=== PATIENT | male | born 1955 | race Caucasian/White ===

== ENCOUNTER 2019-11-10 21:47 | Inpatient (IN) ==
[2019-11-10] MEDS ORDERED: Ondansetron 4 MG/2 ML VIAL IVP PRN (23:54)
[2019-11-10] MEDS ORDERED: Naloxone 0.4 MG/ML INJ IVP PRN (23:54)
[2019-11-11 00:36] LABS: Basophils % 0.5 %; Eosinophils % 0.7 %; Hematocrit 36.2 % (37.5-50.1); Immature Granulocytes % 0.3 % (0-4); Lymphocytes # 1.2 K/mcL (0.6-4.6); Lymphocytes % 21.3 %; Mean Corpuscular HGB Conc 35.9 g/dL (31.6-35.5); Mean Corpuscular Hemoglobin 30.8 pg (28.0-33.3); Mean Corpuscular Volume 85.8 fL (83.0-100.0); Mean Platelet Volume 8.4 fL (9.4-12.4); Monocytes # 0.4 K/mcL (0.0-1.3); Monocytes % 6.5 %; Platelet Count 183 K/mcL (140-400); Red Blood Count 4.22 M/mcL (4.19-5.50); Red Cell Distribution Width 12.9 % (11.5-14.5); Segmented Neutrophils % 70.7 %; White Blood Count 5.7 K/mcL (4.3-11.1)
[2019-11-11 01:02] LABS: BUN/Creatinine Ratio 11 (6-26); Blood Urea Nitrogen 6 mg/dL (8-23); Calcium 9.1 mg/dL (8.6-10.3); Carbon Dioxide 22 mEq/L (23-29); Chloride 86 mEq/L (98-107); Glucose 102 mg/dL (70-105); Magnesium 1.7 mg/dL (1.6-2.6); Osmolality,Calculated 240 (280-300); Sodium 116 mEq/L (136-145); eGFR For African Americans > 60 (> 60); eGFR For Non-African Americans > 60 (> 60)
[2019-11-11 01:55] LABS: Thyroid Stimulating Hormone 1.253 mcIU/mL (0.340-5.600)
[2019-11-11] MEDS: *HR* Heparin 5,000 UNIT/ML VIAL SQ SCH ×2 (06:00→16:28)
[2019-11-11 06:30] LABS: BUN/Creatinine Ratio 12 (6-26); Blood Urea Nitrogen 6 mg/dL (8-23); Chloride 88 mEq/L (98-107); Glucose 81 mg/dL (70-105); Osmolality,Calculated 243 (280-300); Potassium 3.7 mEq/L (3.5-5.1); Sodium 118 mEq/L (136-145); eGFR For African Americans > 60 (> 60); eGFR For Non-African Americans > 60 (> 60)
[2019-11-11 06:45] LABS: Carbon Dioxide 20 mEq/L (23-29)
[2019-11-11] MEDS: Nicotine 21 MG PATCH.TD24 TD SCH (07:42)
[2019-11-11] MEDS: Acetaminophen 325 MG TABLET PO PRN ×2 (09:20→16:11)
[2019-11-11 10:37] LABS: BUN/Creatinine Ratio 11 (6-26); Blood Urea Nitrogen 7 mg/dL (8-23); Calcium 9.3 mg/dL (8.6-10.3); Carbon Dioxide 26 mEq/L (23-29); Chloride 86 mEq/L (98-107); Glucose 110 mg/dL (70-105); Osmolality,Calculated 245 (280-300); Potassium 3.9 mEq/L (3.5-5.1); Sodium 118 mEq/L (136-145); eGFR For African Americans > 60 (> 60); eGFR For Non-African Americans > 60 (> 60)
[2019-11-11 14:39] LABS: BUN/Creatinine Ratio 14 (6-26); Blood Urea Nitrogen 9 mg/dL (8-23); Calcium 8.8 mg/dL (8.6-10.3); Carbon Dioxide 26 mEq/L (23-29); Chloride 87 mEq/L (98-107); Glucose 119 mg/dL (70-105); Osmolality,Calculated 246 (280-300); Potassium 3.4 mEq/L (3.5-5.1); Sodium 118 mEq/L (136-145); eGFR For African Americans > 60 (> 60); eGFR For Non-African Americans > 60 (> 60)
[2019-11-11] MEDS: Doxycycline 100 MG in 0.9 % Sodium Chloride Mini Bag 100 ML IVPB SCH (16:12)
[2019-11-11] MEDS ORDERED: polyethylene glycoL 3350 17 GM POWD.PACK PO PRN (17:02)
[2019-11-11 17:42] LABS: BUN/Creatinine Ratio 17 (6-26); Blood Urea Nitrogen 10 mg/dL (8-23); Calcium 8.8 mg/dL (8.6-10.3); Carbon Dioxide 22 mEq/L (23-29); Chloride 87 mEq/L (98-107); Glucose 85 mg/dL (70-105); Osmolality,Calculated 242 (280-300); Potassium 3.6 mEq/L (3.5-5.1); Sodium 117 mEq/L (136-145); eGFR For African Americans > 60 (> 60); eGFR For Non-African Americans > 60 (> 60)
[2019-11-11] MEDS ORDERED: 0.9 % Sodium Chloride 1,000 ML ONE (18:10)
[2019-11-11] MEDS: 0.9 % Sodium Chloride 1,000 ML IVC SCH (18:22)
[2019-11-11 19:48] LABS: BUN/Creatinine Ratio 16 (6-26); Blood Urea Nitrogen 10 mg/dL (8-23); Calcium 8.6 mg/dL (8.6-10.3); Carbon Dioxide 24 mEq/L (23-29); Chloride 88 mEq/L (98-107); Glucose 126 mg/dL (70-105); Osmolality,Calculated 247 (280-300); Potassium 3.5 mEq/L (3.5-5.1); Sodium 118 mEq/L (136-145); eGFR For African Americans > 60 (> 60); eGFR For Non-African Americans > 60 (> 60)
[2019-11-11] MEDS: Budesonide/Formoterol 80/4.5 1 PUFF INH IH SCH (20:44)
[2019-11-11 23:27] LABS: BUN/Creatinine Ratio 15 (6-26); Blood Urea Nitrogen 9 mg/dL (8-23); Calcium 8.7 mg/dL (8.6-10.3); Carbon Dioxide 25 mEq/L (23-29); Chloride 89 mEq/L (98-107); Glucose 114 mg/dL (70-105); Osmolality,Calculated 250 (280-300); Potassium 3.4 mEq/L (3.5-5.1); Sodium 120 mEq/L (136-145); eGFR For African Americans > 60 (> 60); eGFR For Non-African Americans > 60 (> 60)
[2019-11-12 02:15] LABS: Prothrombin Time 11.1 Seconds (9.4-12.1)
[2019-11-12 02:37] LABS: BUN/Creatinine Ratio 14 (6-26); Blood Urea Nitrogen 8 mg/dL (8-23); Calcium 8.6 mg/dL (8.6-10.3); Carbon Dioxide 24 mEq/L (23-29); Chloride 90 mEq/L (98-107); Glucose 94 mg/dL (70-105); Osmolality,Calculated 248 (280-300); Potassium 3.4 mEq/L (3.5-5.1); Sodium 120 mEq/L (136-145); eGFR For African Americans > 60 (> 60); eGFR For Non-African Americans > 60 (> 60)
[2019-11-12] MEDS: Doxycycline 100 MG in 0.9 % Sodium Chloride Mini Bag 100 ML IVPB SCH (02:48)
[2019-11-12] MEDS: *HR* Heparin 5,000 UNIT/ML VIAL SQ SCH ×2 (04:39→17:16)
[2019-11-12 05:18] LABS: BUN/Creatinine Ratio 11 (6-26); Blood Urea Nitrogen 6 mg/dL (8-23); Calcium 8.6 mg/dL (8.6-10.3); Carbon Dioxide 25 mEq/L (23-29); Chloride 90 mEq/L (98-107); Glucose 93 mg/dL (70-105); Osmolality,Calculated 249 (280-300); Potassium 3.5 mEq/L (3.5-5.1); Sodium 121 mEq/L (136-145); eGFR For African Americans > 60 (> 60); eGFR For Non-African Americans > 60 (> 60)
[2019-11-12 09:28] LABS: BUN/Creatinine Ratio 11 (6-26); Blood Urea Nitrogen 6 mg/dL (8-23); Calcium 8.9 mg/dL (8.6-10.3); Carbon Dioxide 26 mEq/L (23-29); Chloride 90 mEq/L (98-107); Glucose 93 mg/dL (70-105); Osmolality,Calculated 249 (280-300); Potassium 3.4 mEq/L (3.5-5.1); Sodium 121 mEq/L (136-145); eGFR For African Americans > 60 (> 60); eGFR For Non-African Americans > 60 (> 60)
[2019-11-12] MEDS ORDERED: *HR* FentaNYL (PF) 100 MCG/2 ML VIAL ONE (10:18)
[2019-11-12] MEDS: Budesonide/Formoterol 80/4.5 1 PUFF INH IH SCH ×2 (10:45→20:22)
[2019-11-12] MEDS ORDERED: *HR* EPINEPHrine 1 MG/10 ML SYRINGE INTRATRACH PRN (11:20)
[2019-11-12] MEDS: Nicotine 21 MG PATCH.TD24 TD SCH (12:38)
[2019-11-12] MEDS: Metoprolol XL (24 HR) Succ 50 MG TAB.ER.24H PO SCH (12:39)
[2019-11-12] MEDS: Valsartan 160 MG TABLET PO SCH (12:39)
[2019-11-12] MEDS: amLODIPine 5 MG TABLET PO SCH (12:39)
[2019-11-12] MEDS: Aspirin 81 MG TAB.CHEW PO SCH (12:39)
[2019-11-12 13:40] LABS: BUN/Creatinine Ratio 11 (6-26); Blood Urea Nitrogen 6 mg/dL (8-23); Calcium 9.1 mg/dL (8.6-10.3); Carbon Dioxide 21 mEq/L (23-29); Chloride 88 mEq/L (98-107); Glucose 116 mg/dL (70-105); Osmolality,Calculated 257 (280-300); Potassium 3.7 mEq/L (3.5-5.1); Sodium 124 mEq/L (136-145); eGFR For African Americans > 60 (> 60); eGFR For Non-African Americans > 60 (> 60)
[2019-11-12] MEDS ORDERED: *HR* Propofol 200 MG/20 ML VIAL IVP ONE (15:26)
[2019-11-12] MEDS ORDERED: EPHEDrine 50 MG/ML VIAL IVP ONE (15:26)
[2019-11-12] MEDS ORDERED: Ondansetron 4 MG/2 ML VIAL IVP ONE (15:26)
[2019-11-12] MEDS ORDERED: *HR* Succinylcholine 200 MG/10 ML VIAL IVP ONE (15:26)
[2019-11-12] MEDS ORDERED: Lidocaine 2% Syringe 100 MG/5 ML IV ONE ×2 (15:26)
[2019-11-12] MEDS: 0.9 % Sodium Chloride 1,000 ML IVC SCH (17:15)
[2019-11-12 17:52] LABS: Appearance of Body Fluid Cloudy (Clear); Volume of Body Fluid 20 mL
[2019-11-12 18:28] LABS: BUN/Creatinine Ratio 11 (6-26); Blood Urea Nitrogen 6 mg/dL (8-23); Calcium 9.2 mg/dL (8.6-10.3); Carbon Dioxide 21 mEq/L (23-29); Chloride 89 mEq/L (98-107); Glucose 200 mg/dL (70-105); Osmolality,Calculated 253 (280-300); Sodium 120 mEq/L (136-145); eGFR For African Americans > 60 (> 60); eGFR For Non-African Americans > 60 (> 60)
[2019-11-12 20:45] LABS: BUN/Creatinine Ratio 12 (6-26); Blood Urea Nitrogen 6 mg/dL (8-23); Calcium 9.3 mg/dL (8.6-10.3); Carbon Dioxide 22 mEq/L (23-29); Chloride 90 mEq/L (98-107); Glucose 160 mg/dL (70-105); Osmolality,Calculated 251 (280-300); Sodium 120 mEq/L (136-145); eGFR For African Americans > 60 (> 60); eGFR For Non-African Americans > 60 (> 60)
[2019-11-12] MEDS: Doxycycline 100 MG CAPSULE PO SCH (21:28)
[2019-11-12 23:44] LABS: BUN/Creatinine Ratio 13 (6-26); Blood Urea Nitrogen 7 mg/dL (8-23); Calcium 9.3 mg/dL (8.6-10.3); Carbon Dioxide 21 mEq/L (23-29); Chloride 90 mEq/L (98-107); Glucose 177 mg/dL (70-105); Osmolality,Calculated 252 (280-300); Potassium 4.1 mEq/L (3.5-5.1); Sodium 120 mEq/L (136-145); eGFR For African Americans > 60 (> 60); eGFR For Non-African Americans > 60 (> 60)
[2019-11-13 02:28] LABS: BUN/Creatinine Ratio 11 (6-26); Blood Urea Nitrogen 6 mg/dL (8-23); Calcium 9.1 mg/dL (8.6-10.3); Carbon Dioxide 22 mEq/L (23-29); Chloride 90 mEq/L (98-107); Glucose 146 mg/dL (70-105); Osmolality,Calculated 250 (280-300); Sodium 120 mEq/L (136-145); eGFR For African Americans > 60 (> 60); eGFR For Non-African Americans > 60 (> 60)
[2019-11-13 05:14] LABS: Hematocrit 33.2 % (37.5-50.1); Hemoglobin 11.9 g/dL (12.9-16.9); Mean Corpuscular HGB Conc 35.8 g/dL (31.6-35.5); Mean Corpuscular Hemoglobin 30.4 pg (28.0-33.3); Mean Corpuscular Volume 84.7 fL (83.0-100.0); Mean Platelet Volume 8.4 fL (9.4-12.4); Platelet Count 187 K/mcL (140-400); Red Blood Count 3.92 M/mcL (4.19-5.50); Red Cell Distribution Width 13.3 % (11.5-14.5); White Blood Count 8.3 K/mcL (4.3-11.1)
[2019-11-13 05:37] LABS: BUN/Creatinine Ratio 11 (6-26); Blood Urea Nitrogen 6 mg/dL (8-23); Calcium 8.9 mg/dL (8.6-10.3); Carbon Dioxide 22 mEq/L (23-29); Chloride 91 mEq/L (98-107); Glucose 126 mg/dL (70-105); Osmolality,Calculated 247 (280-300); Potassium 4.1 mEq/L (3.5-5.1); Sodium 119 mEq/L (136-145); eGFR For African Americans > 60 (> 60); eGFR For Non-African Americans > 60 (> 60)
[2019-11-13] MEDS: *HR* Heparin 5,000 UNIT/ML VIAL SQ SCH ×2 (05:46→17:02)
[2019-11-13] MEDS: Budesonide/Formoterol 80/4.5 1 PUFF INH IH SCH ×2 (07:44→19:52)
[2019-11-13] MEDS: amLODIPine 5 MG TABLET PO SCH (08:33)
[2019-11-13] MEDS: Valsartan 160 MG TABLET PO SCH (08:33)
[2019-11-13] MEDS: Metoprolol XL (24 HR) Succ 50 MG TAB.ER.24H PO SCH (08:33)
[2019-11-13] MEDS: Aspirin 81 MG TAB.CHEW PO SCH (08:33)
[2019-11-13] MEDS: Nicotine 21 MG PATCH.TD24 TD SCH (08:33)
[2019-11-13] MEDS: Doxycycline 100 MG CAPSULE PO SCH ×2 (08:33→20:11)
[2019-11-13] MEDS ORDERED: 0.9 % Sodium Chloride 1,000 ML IVC SCH (09:00)
[2019-11-13] MEDS ORDERED: GI Cocktail 40 ML EACH PO ONE (17:41)
[2019-11-14 01:07] LABS: Basophils # 0.1 K/mcL (0.0-0.2); Basophils % 0.8 %; Eosinophils # 0.1 K/mcL (0.0-0.6); Eosinophils % 0.8 %; Hematocrit 32.1 % (37.5-50.1); Hemoglobin 11.3 g/dL (12.9-16.9); Immature Granulocytes % 0.4 % (0-4); Lymphocytes % 25.9 %; Mean Corpuscular HGB Conc 35.2 g/dL (31.6-35.5); Mean Corpuscular Hemoglobin 30.4 pg (28.0-33.3); Mean Corpuscular Volume 86.3 fL (83.0-100.0); Mean Platelet Volume 8.4 fL (9.4-12.4); Monocytes # 0.6 K/mcL (0.0-1.3); Monocytes % 7.7 %; Neutrophils # 4.9 K/mcL (1.6-8.9); Platelet Count 191 K/mcL (140-400); Red Blood Count 3.72 M/mcL (4.19-5.50); Red Cell Distribution Width 13.3 % (11.5-14.5); Segmented Neutrophils % 64.4 %; White Blood Count 7.6 K/mcL (4.3-11.1)
[2019-11-14 01:28] LABS: BUN/Creatinine Ratio 15 (6-26); Blood Urea Nitrogen 8 mg/dL (8-23); Calcium 8.8 mg/dL (8.6-10.3); Carbon Dioxide 24 mEq/L (23-29); Chloride 93 mEq/L (98-107); Glucose 88 mg/dL (70-105); Osmolality,Calculated 254 (280-300); Potassium 3.6 mEq/L (3.5-5.1); Sodium 123 mEq/L (136-145); eGFR For African Americans > 60 (> 60); eGFR For Non-African Americans > 60 (> 60)
[2019-11-14] MEDS: *HR* Heparin 5,000 UNIT/ML VIAL SQ SCH ×2 (05:02→17:41)
[2019-11-14] MEDS: Valsartan 160 MG TABLET PO SCH (07:45)
[2019-11-14] MEDS: Aspirin 81 MG TAB.CHEW PO SCH (07:45)
[2019-11-14] MEDS: Metoprolol XL (24 HR) Succ 50 MG TAB.ER.24H PO SCH (07:45)
[2019-11-14] MEDS: amLODIPine 5 MG TABLET PO SCH (07:45)
[2019-11-14] MEDS: Doxycycline 100 MG CAPSULE PO SCH ×2 (07:45→20:05)
[2019-11-14] MEDS: Nicotine 21 MG PATCH.TD24 TD SCH (07:45)
[2019-11-14] MEDS: Budesonide/Formoterol 80/4.5 1 PUFF INH IH SCH ×2 (07:47→22:50)
[2019-11-15 01:52] LABS: Basophils # 0.1 K/mcL (0.0-0.2); Basophils % 1.4 %; Eosinophils # 0.1 K/mcL (0.0-0.6); Eosinophils % 1.6 %; Hematocrit 33.5 % (37.5-50.1); Hemoglobin 11.7 g/dL (12.9-16.9); Immature Granulocytes % 0.5 % (0-4); Lymphocytes # 1.7 K/mcL (0.6-4.6); Lymphocytes % 31.1 %; Mean Corpuscular HGB Conc 34.9 g/dL (31.6-35.5); Mean Corpuscular Hemoglobin 30.6 pg (28.0-33.3); Mean Corpuscular Volume 87.7 fL (83.0-100.0); Mean Platelet Volume 8.4 fL (9.4-12.4); Monocytes # 0.6 K/mcL (0.0-1.3); Monocytes % 10.5 %; Neutrophils # 3.1 K/mcL (1.6-8.9); Platelet Count 199 K/mcL (140-400); Red Blood Count 3.82 M/mcL (4.19-5.50); Red Cell Distribution Width 13.5 % (11.5-14.5); Segmented Neutrophils % 54.9 %; White Blood Count 5.6 K/mcL (4.3-11.1)
[2019-11-15 02:07] LABS: BUN/Creatinine Ratio 14 (6-26); Blood Urea Nitrogen 8 mg/dL (8-23); Calcium 8.9 mg/dL (8.6-10.3); Carbon Dioxide 24 mEq/L (23-29); Chloride 94 mEq/L (98-107); Glucose 96 mg/dL (70-105); Osmolality,Calculated 258 (280-300); Potassium 3.7 mEq/L (3.5-5.1); Sodium 125 mEq/L (136-145); eGFR For African Americans > 60 (> 60); eGFR For Non-African Americans > 60 (> 60)
[2019-11-15] MEDS: *HR* Heparin 5,000 UNIT/ML VIAL SQ SCH (05:46)
[2019-11-15] MEDS: Metoprolol XL (24 HR) Succ 50 MG TAB.ER.24H PO SCH (09:06)
[2019-11-15] MEDS: Doxycycline 100 MG CAPSULE PO SCH (09:06)
[2019-11-15] MEDS: Aspirin 81 MG TAB.CHEW PO SCH (09:06)
[2019-11-15] MEDS: amLODIPine 5 MG TABLET PO SCH (09:06)
[2019-11-15] MEDS: Valsartan 160 MG TABLET PO SCH (09:06)
[2019-11-15] MEDS: Nicotine 21 MG PATCH.TD24 TD SCH (09:07)
[2019-11-15] MEDS ORDERED: Isovue-370 500 ML BOTTLE IVP ONE (09:40)
[2019-11-15] MEDS: Budesonide/Formoterol 80/4.5 1 PUFF INH IH SCH (10:06)
[2019-11-15 10:26] VITALS: BP 139/87
[2019-11-15] MEDS ORDERED: Isovue-370 500 ML BOTTLE PO ONE (12:39)
== END 2019-11-15 15:27 | disposition home or self-care (01) ==
LOC: 3NENU → SUATTDRO 22:57 → 3ANU 11-14 18:00
PROVIDERS: ADMIT Internal Medicine; ATTEND Family Medicine

== ENCOUNTER 2019-12-04 02:44 | Inpatient (IN) ==
[2019-12-04] MEDS ORDERED: Acetaminophen 325 MG TABLET PO PRN (04:55)
[2019-12-04] MEDS ORDERED: *HR* HYDROcodone/Acet 5/325 mg TABLET PO PRN (04:55)
[2019-12-04] MEDS ORDERED: *HR* Promethazine 25 MG/ML VIAL IVP PRN (04:55)
[2019-12-04] MEDS ORDERED: Naloxone 0.4 MG/ML INJ IVP PRN (04:55)
[2019-12-04 06:09] LABS: Basophils % 0.5 %; Eosinophils % 0.2 %; Hematocrit 36.4 % (37.5-50.1); Hemoglobin 12.8 g/dL (12.9-16.9); Lymphocytes # 0.5 K/mcL (0.6-4.6); Lymphocytes % 7.7 %; Mean Corpuscular HGB Conc 35.2 g/dL (31.6-35.5); Mean Corpuscular Hemoglobin 30.4 pg (28.0-33.3); Mean Corpuscular Volume 86.5 fL (83.0-100.0); Mean Platelet Volume 8.2 fL (9.4-12.4); Monocytes # 0.1 K/mcL (0.0-1.3); Monocytes % 1.6 %; Neutrophils # 5.6 K/mcL (1.6-8.9); Platelet Count 208 K/mcL (140-400); Red Blood Count 4.21 M/mcL (4.19-5.50); Red Cell Distribution Width 13.8 % (11.5-14.5); White Blood Count 6.2 K/mcL (4.3-11.1)
[2019-12-04 06:34] LABS: Alanine Aminotransferase 17 Units/L (7-52); Albumin 4.1 g/dL (3.5-5.7); Alkaline Phosphatase 64 Units/L (34-104); Aspartate Amino Transferase 20 Units/L (13-39); BUN/Creatinine Ratio 12 (6-26); Bilirubin,Total 0.6 mg/dL (0.3-1.0); Blood Urea Nitrogen 7 mg/dL (8-23); Calcium 8.9 mg/dL (8.6-10.3); Carbon Dioxide 21 mEq/L (23-29); Chloride 90 mEq/L (98-107); Glucose 147 mg/dL (70-105); Osmolality,Calculated 245 (280-300); Potassium 4.4 mEq/L (3.5-5.1); Sodium 117 mEq/L (136-145); eGFR For African Americans > 60 (> 60); eGFR For Non-African Americans > 60 (> 60)
[2019-12-04 06:42] LABS: Albumin/Globulin Ratio 1.9 (1.1-2.2); Globulin 2.2 g/dL (2.4-3.5); Total Protein 6.3 g/dL (6.4-8.9)
[2019-12-04] MEDS ORDERED: *HR* Heparin 5,000 UNIT/ML VIAL IVP PRN ×2 (07:32)
[2019-12-04] MEDS ORDERED: *HR* Heparin 5,000 UNIT/ML VIAL IVP ONE (07:32)
[2019-12-04] MEDS: Mag Hydrox/Al Hydrox/Simeth 30 ML UDC PO PRN ×3 (08:31→22:48)
[2019-12-04] MEDS: Metoprolol XL (24 HR) Succ 50 MG TAB.ER.24H PO SCH (08:32)
[2019-12-04] MEDS: Aspirin 81 MG TAB.CHEW PO SCH (08:33)
[2019-12-04] MEDS: amLODIPine 5 MG TABLET PO SCH (08:33)
[2019-12-04] MEDS: Heparin 25,000 UNIT/250 ML D5W 25,000 UNIT/250 ML IV.SOLN IVC SCH (08:34)
[2019-12-04 08:36] LABS: Estimated Average Glucose 111 mg/dl
[2019-12-04 09:15] LABS: Hematocrit 37.8 % (37.5-50.1); Hemoglobin 13.1 g/dL (12.9-16.9); Mean Corpuscular HGB Conc 34.7 g/dL (31.6-35.5); Mean Corpuscular Hemoglobin 30.2 pg (28.0-33.3); Mean Corpuscular Volume 87.1 fL (83.0-100.0); Mean Platelet Volume 8.3 fL (9.4-12.4); Platelet Count 228 K/mcL (140-400); Red Blood Count 4.34 M/mcL (4.19-5.50); Red Cell Distribution Width 13.7 % (11.5-14.5)
[2019-12-04] MEDS: Budesonide/Formoterol 80/4.5 1 PUFF INH IH SCH ×2 (09:20→20:19)
[2019-12-04 09:29] LABS: Heparin anti-factor XA UFH < 0.04 IU/mL (0.30-0.70); Prothrombin Time 11.2 Seconds (9.4-12.1)
[2019-12-04] MEDS ORDERED: *HR* Heparin 5,000 UNIT/ML VIAL SQ SCH (18:00)
[2019-12-04 22:16] LABS: Bilirubin,Urine Negative (Negative); Blood,Urine Negative (Negative); Clarity,Urine Clear (Clear); Color,Urine Yellow (Yellow); Glucose,Urine (UA) Normal (Normal); Ketones,Urine Negative (Negative); Leukocyte Esterase,Urine Negative (Negative); Nitrite,Urine Negative (Negative); Protein,Urine Trace mg/dL (Neg-Trace); Urobilinogen,Urine Normal (Normal)
[2019-12-05 05:07] LABS: Hematocrit 36.9 % (37.5-50.1); Hemoglobin 13.1 g/dL (12.9-16.9); Mean Corpuscular HGB Conc 35.5 g/dL (31.6-35.5); Mean Corpuscular Hemoglobin 30.9 pg (28.0-33.3); Mean Platelet Volume 8.1 fL (9.4-12.4); Platelet Count 203 K/mcL (140-400); Red Blood Count 4.24 M/mcL (4.19-5.50); Red Cell Distribution Width 13.4 % (11.5-14.5); White Blood Count 8.5 K/mcL (4.3-11.1)
[2019-12-05 05:52] LABS: % Iron Saturation 26 % (20-55); BUN/Creatinine Ratio 13 (6-26); Blood Urea Nitrogen 8 mg/dL (8-23); Calcium 8.9 mg/dL (8.6-10.3); Carbon Dioxide 23 mEq/L (23-29); Chloride 86 mEq/L (98-107); Glucose 96 mg/dL (70-105); Iron 98 mcg/dL (65-175); Osmolality,Calculated 246 (280-300); Potassium 4.1 mEq/L (3.5-5.1); Sodium 119 mEq/L (136-145); Transferrin 271 mg/dL (203-362); eGFR For African Americans > 60 (> 60); eGFR For Non-African Americans > 60 (> 60)
[2019-12-05 05:53] LABS: Folate 11.7 ng/mL (3.0-16.0)
[2019-12-05] MEDS: Heparin 25,000 UNIT/250 ML D5W 25,000 UNIT/250 ML IV.SOLN IVC SCH (07:43)
[2019-12-05] MEDS: Aspirin 81 MG TAB.CHEW PO SCH (07:43)
[2019-12-05] MEDS: Metoprolol XL (24 HR) Succ 50 MG TAB.ER.24H PO SCH (07:43)
[2019-12-05] MEDS: amLODIPine 5 MG TABLET PO SCH (07:43)
[2019-12-05] MEDS: Mag Hydrox/Al Hydrox/Simeth 30 ML UDC PO PRN ×2 (08:05→17:16)
[2019-12-05] MEDS: Budesonide/Formoterol 80/4.5 1 PUFF INH IH SCH ×2 (08:13→20:00)
[2019-12-05] MEDS: *HR* Heparin 5,000 UNIT/ML VIAL SQ SCH (17:11)
[2019-12-05] MEDS: predniSONE 20 MG TABLET PO SCH (17:50)
[2019-12-05] MEDS: Loratadine 10 MG TABLET PO SCH (19:49)
[2019-12-06 04:15] LABS: Hematocrit 36.9 % (37.5-50.1); Hemoglobin 12.8 g/dL (12.9-16.9); Mean Corpuscular HGB Conc 34.7 g/dL (31.6-35.5); Mean Corpuscular Hemoglobin 30.4 pg (28.0-33.3); Mean Corpuscular Volume 87.6 fL (83.0-100.0); Mean Platelet Volume 8.6 fL (9.4-12.4); Platelet Count 227 K/mcL (140-400); Red Blood Count 4.21 M/mcL (4.19-5.50); Red Cell Distribution Width 13.5 % (11.5-14.5); White Blood Count 7.3 K/mcL (4.3-11.1)
[2019-12-06 04:46] LABS: BUN/Creatinine Ratio 17 (6-26); Blood Urea Nitrogen 11 mg/dL (8-23); Calcium 9.4 mg/dL (8.6-10.3); Carbon Dioxide 22 mEq/L (23-29); Chloride 90 mEq/L (98-107); Glucose 113 mg/dL (70-105); Osmolality,Calculated 250 (280-300); Potassium 4.3 mEq/L (3.5-5.1); Sodium 120 mEq/L (136-145); eGFR For African Americans > 60 (> 60); eGFR For Non-African Americans > 60 (> 60)
[2019-12-06] MEDS: *HR* Heparin 5,000 UNIT/ML VIAL SQ SCH ×2 (05:51→17:25)
[2019-12-06] MEDS: Metoprolol XL (24 HR) Succ 50 MG TAB.ER.24H PO SCH (08:26)
[2019-12-06] MEDS: Aspirin 81 MG TAB.CHEW PO SCH (08:26)
[2019-12-06] MEDS: amLODIPine 5 MG TABLET PO SCH (08:26)
[2019-12-06] MEDS: Mag Hydrox/Al Hydrox/Simeth 30 ML UDC PO PRN (08:26)
[2019-12-06] MEDS: predniSONE 20 MG TABLET PO SCH (08:26)
[2019-12-06] MEDS: Loratadine 10 MG TABLET PO SCH ×2 (08:26→20:14)
[2019-12-06] MEDS: Budesonide/Formoterol 80/4.5 1 PUFF INH IH SCH ×2 (11:51→19:54)
[2019-12-07 01:36] LABS: BUN/Creatinine Ratio 20 (6-26); Blood Urea Nitrogen 14 mg/dL (8-23); Calcium 8.9 mg/dL (8.6-10.3); Carbon Dioxide 23 mEq/L (23-29); Chloride 93 mEq/L (98-107); Glucose 105 mg/dL (70-105); Osmolality,Calculated 259 (280-300); Potassium 4.1 mEq/L (3.5-5.1); Sodium 124 mEq/L (136-145); eGFR For African Americans > 60 (> 60); eGFR For Non-African Americans > 60 (> 60)
[2019-12-07] MEDS: *HR* Heparin 5,000 UNIT/ML VIAL SQ SCH (05:15)
[2019-12-07 06:57] VITALS: BP 152/96
[2019-12-07] MEDS: Loratadine 10 MG TABLET PO SCH (08:45)
[2019-12-07] MEDS: predniSONE 20 MG TABLET PO SCH (08:45)
[2019-12-07] MEDS: Metoprolol XL (24 HR) Succ 50 MG TAB.ER.24H PO SCH (08:45)
[2019-12-07] MEDS: Aspirin 81 MG TAB.CHEW PO SCH (08:45)
[2019-12-07] MEDS: amLODIPine 5 MG TABLET PO SCH (08:45)
== END 2019-12-07 10:14 | disposition home or self-care (01) | DRG 385 ==
LOC: 3BNU
PROVIDERS: ADMIT Family Medicine; ATTEND Family Medicine

== ENCOUNTER 2020-01-01 13:53 | Inpatient (IN) ==
[2020-01-01] MEDS ORDERED: Prochlorperazine 10 MG/2 ML VIAL IVP STA (15:31)
[2020-01-01] MEDS ORDERED: Ondansetron 4 MG/2 ML VIAL IVP PRN (15:54)
[2020-01-01] MEDS ORDERED: Naloxone 0.4 MG/ML INJ IVP PRN (15:54)
[2020-01-01] MEDS ORDERED: 0.9 % Sodium Chloride 1,000 ML IVC SCH ×2 (16:00→22:40)
[2020-01-01] MEDS: *HR* Heparin 5,000 UNIT/ML VIAL SQ SCH (19:01)
[2020-01-01 19:39] LABS: BUN/Creatinine Ratio 11 (6-26); Blood Urea Nitrogen 6 mg/dL (8-23); Calcium 8.5 mg/dL (8.6-10.3); Carbon Dioxide 26 mEq/L (23-29); Chloride 84 mEq/L (98-107); Glucose 102 mg/dL (70-105); Osmolality,Calculated 234 (280-300); Potassium 4.4 mEq/L (3.5-5.1); Sodium 113 mEq/L (136-145); eGFR For African Americans > 60 (> 60); eGFR For Non-African Americans > 60 (> 60)
[2020-01-01] MEDS: Budesonide/Formoterol 80/4.5 1 PUFF INH IH SCH (19:57)
[2020-01-01 22:35] LABS: BUN/Creatinine Ratio 10 (6-26); Blood Urea Nitrogen 5 mg/dL (8-23); Calcium 8.4 mg/dL (8.6-10.3); Carbon Dioxide 23 mEq/L (23-29); Chloride 84 mEq/L (98-107); Glucose 104 mg/dL (70-105); Osmolality,Calculated 234 (280-300); Potassium 3.8 mEq/L (3.5-5.1); Sodium 113 mEq/L (136-145); eGFR For African Americans > 60 (> 60); eGFR For Non-African Americans > 60 (> 60)
[2020-01-02 02:17] LABS: BUN/Creatinine Ratio 10 (6-26); Blood Urea Nitrogen 5 mg/dL (8-23); Calcium 8.4 mg/dL (8.6-10.3); Carbon Dioxide 24 mEq/L (23-29); Chloride 84 mEq/L (98-107); Glucose 79 mg/dL (70-105); Osmolality,Calculated 232 (280-300); Sodium 113 mEq/L (136-145); eGFR For African Americans > 60 (> 60); eGFR For Non-African Americans > 60 (> 60)
[2020-01-02] MEDS ORDERED: 0.9 % Sodium Chloride 1,000 ML IVC SCH (02:30)
[2020-01-02] MEDS: *HR* Heparin 5,000 UNIT/ML VIAL SQ SCH ×2 (05:25→17:14)
[2020-01-02 06:20] LABS: BUN/Creatinine Ratio 11 (6-26); Blood Urea Nitrogen 5 mg/dL (8-23); Calcium 8.4 mg/dL (8.6-10.3); Carbon Dioxide 23 mEq/L (23-29); Chloride 85 mEq/L (98-107); Glucose 79 mg/dL (70-105); Osmolality,Calculated 232 (280-300); Potassium 4.1 mEq/L (3.5-5.1); Sodium 113 mEq/L (136-145); Uric Acid 1.6 mg/dL (2.3-7.6); eGFR For African Americans > 60 (> 60); eGFR For Non-African Americans > 60 (> 60)
[2020-01-02] MEDS ORDERED: NON-FORMULARY MEDICATION 1 EACH EACH (Ondansetron Hcl [Ondansetron Hcl] 8 MG) PO PRN (06:58)
[2020-01-02] MEDS ORDERED: traZODone 50 MG TABLET PO PRN (06:58)
[2020-01-02] MEDS ORDERED: dexAMETHasone 4 MG TABLET PO PRN (07:00)
[2020-01-02] MEDS: Metoprolol XL (24 HR) Succ 50 MG TAB.ER.24H PO SCH (07:42)
[2020-01-02] MEDS: amLODIPine 5 MG TABLET PO SCH (07:42)
[2020-01-02] MEDS: Aspirin 81 MG TAB.CHEW PO SCH (07:42)
[2020-01-02] MEDS: Nicotine 14 MG PATCH.TD24 TD SCH (07:42)
[2020-01-02] MEDS: polyethylene glycoL 3350 17 GM POWD.PACK PO SCH (07:42)
[2020-01-02] MEDS: Loratadine 10 MG TABLET PO SCH (07:43)
[2020-01-02] MEDS: Budesonide/Formoterol 80/4.5 1 PUFF INH IH SCH ×2 (10:32→19:25)
[2020-01-02 11:14] LABS: BUN/Creatinine Ratio 11 (6-26); Blood Urea Nitrogen 6 mg/dL (8-23); Calcium 8.4 mg/dL (8.6-10.3); Carbon Dioxide 24 mEq/L (23-29); Chloride 85 mEq/L (98-107); Glucose 81 mg/dL (70-105); Osmolality,Calculated 233 (280-300); Potassium 4.3 mEq/L (3.5-5.1); Sodium 113 mEq/L (136-145); eGFR For African Americans > 60 (> 60); eGFR For Non-African Americans > 60 (> 60)
[2020-01-02 14:42] LABS: BUN/Creatinine Ratio 11 (6-26); Blood Urea Nitrogen 6 mg/dL (8-23); Calcium 8.5 mg/dL (8.6-10.3); Carbon Dioxide 23 mEq/L (23-29); Chloride 86 mEq/L (98-107); Glucose 96 mg/dL (70-105); Osmolality,Calculated 231 (280-300); Potassium 4.2 mEq/L (3.5-5.1); Sodium 112 mEq/L (136-145); eGFR For African Americans > 60 (> 60); eGFR For Non-African Americans > 60 (> 60)
[2020-01-02 18:11] LABS: BUN/Creatinine Ratio 11 (6-26); Blood Urea Nitrogen 6 mg/dL (8-23); Calcium 8.3 mg/dL (8.6-10.3); Carbon Dioxide 23 mEq/L (23-29); Chloride 85 mEq/L (98-107); Glucose 152 mg/dL (70-105); Osmolality,Calculated 239 (280-300); Potassium 3.9 mEq/L (3.5-5.1); Sodium 114 mEq/L (136-145); eGFR For African Americans > 60 (> 60); eGFR For Non-African Americans > 60 (> 60)
[2020-01-02] MEDS ORDERED: Melatonin 3 MG TABLET PO ONE (23:05)
[2020-01-02 23:57] LABS: BUN/Creatinine Ratio 13 (6-26); Blood Urea Nitrogen 7 mg/dL (8-23); Calcium 8.6 mg/dL (8.6-10.3); Carbon Dioxide 22 mEq/L (23-29); Chloride 87 mEq/L (98-107); Glucose 112 mg/dL (70-105); Osmolality,Calculated 239 (280-300); Sodium 115 mEq/L (136-145); eGFR For African Americans > 60 (> 60); eGFR For Non-African Americans > 60 (> 60)
[2020-01-03 02:39] LABS: BUN/Creatinine Ratio 13 (6-26); Blood Urea Nitrogen 7 mg/dL (8-23); Calcium 8.5 mg/dL (8.6-10.3); Carbon Dioxide 22 mEq/L (23-29); Chloride 87 mEq/L (98-107); Glucose 116 mg/dL (70-105); Osmolality,Calculated 239 (280-300); Sodium 115 mEq/L (136-145); eGFR For African Americans > 60 (> 60); eGFR For Non-African Americans > 60 (> 60)
[2020-01-03] MEDS: *HR* Heparin 5,000 UNIT/ML VIAL SQ SCH ×2 (05:47→16:53)
[2020-01-03 06:27] LABS: BUN/Creatinine Ratio 12 (6-26); Blood Urea Nitrogen 6 mg/dL (8-23); Calcium 8.6 mg/dL (8.6-10.3); Carbon Dioxide 25 mEq/L (23-29); Chloride 86 mEq/L (98-107); Glucose 86 mg/dL (70-105); Osmolality,Calculated 237 (280-300); Potassium 4.2 mEq/L (3.5-5.1); Sodium 115 mEq/L (136-145); eGFR For African Americans > 60 (> 60); eGFR For Non-African Americans > 60 (> 60)
[2020-01-03] MEDS: Budesonide/Formoterol 80/4.5 1 PUFF INH IH SCH ×2 (07:39→20:04)
[2020-01-03] MEDS: amLODIPine 5 MG TABLET PO SCH (08:02)
[2020-01-03] MEDS: Metoprolol XL (24 HR) Succ 50 MG TAB.ER.24H PO SCH (08:03)
[2020-01-03] MEDS: Aspirin 81 MG TAB.CHEW PO SCH (08:03)
[2020-01-03] MEDS: Loratadine 10 MG TABLET PO SCH (08:03)
[2020-01-03] MEDS: polyethylene glycoL 3350 17 GM POWD.PACK PO SCH (08:05)
[2020-01-03] MEDS: Nicotine 14 MG PATCH.TD24 TD SCH (08:05)
[2020-01-03] MEDS ORDERED: Melatonin 3 MG TABLET PO PRN (10:51)
[2020-01-03 12:20] LABS: BUN/Creatinine Ratio 12 (6-26); Blood Urea Nitrogen 8 mg/dL (8-23); Calcium 8.9 mg/dL (8.6-10.3); Carbon Dioxide 25 mEq/L (23-29); Chloride 87 mEq/L (98-107); Glucose 88 mg/dL (70-105); Osmolality,Calculated 240 (280-300); Potassium 4.3 mEq/L (3.5-5.1); Sodium 116 mEq/L (136-145); eGFR For African Americans > 60 (> 60); eGFR For Non-African Americans > 60 (> 60)
[2020-01-03 15:53] LABS: BUN/Creatinine Ratio 14 (6-26); Blood Urea Nitrogen 8 mg/dL (8-23); Calcium 8.6 mg/dL (8.6-10.3); Carbon Dioxide 25 mEq/L (23-29); Chloride 88 mEq/L (98-107); Glucose 104 mg/dL (70-105); Osmolality,Calculated 243 (280-300); Potassium 4.2 mEq/L (3.5-5.1); Sodium 117 mEq/L (136-145); eGFR For African Americans > 60 (> 60); eGFR For Non-African Americans > 60 (> 60)
[2020-01-03 20:33] LABS: BUN/Creatinine Ratio 17 (6-26); Blood Urea Nitrogen 9 mg/dL (8-23); Calcium 8.7 mg/dL (8.6-10.3); Carbon Dioxide 24 mEq/L (23-29); Chloride 88 mEq/L (98-107); Glucose 116 mg/dL (70-105); Osmolality,Calculated 246 (280-300); Sodium 118 mEq/L (136-145); eGFR For African Americans > 60 (> 60); eGFR For Non-African Americans > 60 (> 60)
[2020-01-04 00:20] LABS: BUN/Creatinine Ratio 15 (6-26); Blood Urea Nitrogen 9 mg/dL (8-23); Calcium 8.5 mg/dL (8.6-10.3); Carbon Dioxide 25 mEq/L (23-29); Chloride 90 mEq/L (98-107); Glucose 108 mg/dL (70-105); Osmolality,Calculated 247 (280-300); Sodium 119 mEq/L (136-145); eGFR For African Americans > 60 (> 60); eGFR For Non-African Americans > 60 (> 60)
[2020-01-04 04:25] LABS: Basophils # 0.1 K/mcL (0.0-0.2); Basophils % 1.6 %; Eosinophils % 0.2 %; Hematocrit 27.8 % (37.5-50.1); Hemoglobin 9.8 g/dL (12.9-16.9); Immature Granulocytes % 5.8 % (0-4); Lymphocytes # 1.5 K/mcL (0.6-4.6); Lymphocytes % 23.6 %; Mean Corpuscular HGB Conc 35.3 g/dL (31.6-35.5); Mean Corpuscular Hemoglobin 30.7 pg (28.0-33.3); Mean Corpuscular Volume 87.1 fL (83.0-100.0); Mean Platelet Volume 8.8 fL (9.4-12.4); Monocytes % 15.4 %; Neutrophils # 3.4 K/mcL (1.6-8.9); Platelet Count 238 K/mcL (140-400); Red Blood Count 3.19 M/mcL (4.19-5.50); Red Cell Distribution Width 14.7 % (11.5-14.5); Segmented Neutrophils % 53.4 %; White Blood Count 6.4 K/mcL (4.3-11.1)
[2020-01-04 04:28] LABS: BUN/Creatinine Ratio 16 (6-26); Blood Urea Nitrogen 9 mg/dL (8-23); Calcium 8.7 mg/dL (8.6-10.3); Carbon Dioxide 25 mEq/L (23-29); Chloride 91 mEq/L (98-107); Glucose 88 mg/dL (70-105); Osmolality,Calculated 250 (280-300); Sodium 121 mEq/L (136-145); eGFR For African Americans > 60 (> 60); eGFR For Non-African Americans > 60 (> 60)
[2020-01-04] MEDS: *HR* Heparin 5,000 UNIT/ML VIAL SQ SCH ×2 (05:30→17:33)
[2020-01-04 06:01] LABS: Platelet Estimate Normal (Normal)
[2020-01-04] MEDS: Metoprolol XL (24 HR) Succ 50 MG TAB.ER.24H PO SCH (08:53)
[2020-01-04] MEDS: amLODIPine 5 MG TABLET PO SCH (08:53)
[2020-01-04] MEDS: Aspirin 81 MG TAB.CHEW PO SCH (08:54)
[2020-01-04] MEDS: Loratadine 10 MG TABLET PO SCH (08:54)
[2020-01-04] MEDS: Nicotine 14 MG PATCH.TD24 TD SCH (08:54)
[2020-01-04] MEDS: polyethylene glycoL 3350 17 GM POWD.PACK PO SCH (08:54)
[2020-01-04] MEDS: Budesonide/Formoterol 80/4.5 1 PUFF INH IH SCH ×2 (09:55→20:01)
[2020-01-04] MEDS ORDERED: Tolvaptan 15 MG TABLET PO ONE (15:57)
[2020-01-05 02:53] LABS: BUN/Creatinine Ratio 15 (6-26); Blood Urea Nitrogen 10 mg/dL (8-23); Calcium 9.3 mg/dL (8.6-10.3); Carbon Dioxide 25 mEq/L (23-29); Chloride 101 mEq/L (98-107); Glucose 134 mg/dL (70-105); Osmolality,Calculated 277 (280-300); Potassium 4.3 mEq/L (3.5-5.1); Sodium 133 mEq/L (136-145); eGFR For African Americans > 60 (> 60); eGFR For Non-African Americans > 60 (> 60)
[2020-01-05] MEDS: *HR* Heparin 5,000 UNIT/ML VIAL SQ SCH (05:54)
[2020-01-05 07:48] VITALS: BP 144/85
[2020-01-05] MEDS: Aspirin 81 MG TAB.CHEW PO SCH (08:16)
[2020-01-05] MEDS: Nicotine 14 MG PATCH.TD24 TD SCH (08:16)
[2020-01-05] MEDS: amLODIPine 5 MG TABLET PO SCH (08:16)
[2020-01-05] MEDS: polyethylene glycoL 3350 17 GM POWD.PACK PO SCH (08:16)
[2020-01-05] MEDS: Metoprolol XL (24 HR) Succ 50 MG TAB.ER.24H PO SCH (08:16)
[2020-01-05] MEDS: Loratadine 10 MG TABLET PO SCH (08:16)
[2020-01-05] MEDS: Budesonide/Formoterol 80/4.5 1 PUFF INH IH SCH (10:22)
== END 2020-01-05 12:21 | disposition home or self-care (01) | DRG 426 ==
LOC: 2ANU 13:53 → EMEROOARM 13:53 → SUATTDRO 15:57 → 2ANU 16:17 → SUATTDRO 01-03 12:54
PROVIDERS: ADMIT Internal Medicine; ATTEND Internal Medicine